=== PATIENT | male | born 1945 | race Caucasian/White ===

== ENCOUNTER 2022-01-15 18:12 | Inpatient (IN) | payer OTHER ==
[~2022-01-15] VITALS: Ht 190.5 cm; Wt 112.2 kg
[2022-01-15] MEDS ORDERED: FUROSEMIDE 40 MG/4 ML VIAL IV ONE (19:30)
[2022-01-15 20:30] LABS: Basophils # (auto) 0.1 10 ^3/uL (0-0.2); Basophils % (auto) 0.6 % (0.0-2.0); Eosinophils # (auto) 0 10 ^3/uL (0-0.8); Eosinophils % (auto) 0.2 % (0.0-7.0); Hematocrit 39.2 % (41.0-53.0); Hemoglobin 13.2 g/dL (13.5-17.5); Lymphocytes # (auto) 1.5 10 ^3/uL (0.4-5.4); Lymphocytes % (auto) 13.5 % (10.0-50.0); Mean Corpuscular Hemoglobin 30.7 pg (28.0-32.0); Mean Corpuscular Hgb Conc. 33.6 g/dL (32.0-36.0); Mean Corpuscular Volume 91.4 fL (80.0-100.0); Monocytes # (auto) 1.5 10 ^3/uL (0-1.3); Monocytes % (auto) 13.4 % (0.0-12.0); Neutrophils % (auto) 72.3 % (37.0-80.0); Nucleated Red Blood Cells % 0.1 %; Red Blood Cells 4.29 10^6/uL (4.5-5.90); Red Cell Distribution Width 14.3 % (11.8-14.3); White Blood Cell 11.1 10^3/uL (4.4-10.8)
[2022-01-15 20:59] LABS: Albumin 3.1 g/dL (3.4-5.0); Calcium 8.9 mg/dL (8.5-10.1); Potassium 5.3 mmol/L (3.5-5.1)
[2022-01-15 21:10] LABS: Bilirubin, Total 0.7 mg/dL (0.2-1.0); Total Protein 6.9 g/dL (6.4-8.2)
[2022-01-15] MEDS ORDERED: ACETAMINOPHEN 325 MG TAB PO PRN (22:15)
[2022-01-15] MEDS ORDERED: NITROGLYCERIN 0.4 MG SL TAB SL PRN (22:15)
[2022-01-15] MEDS ORDERED: MORPHINE SULFATE INJ 2 MG/ml SYRG IV PRN (22:15)
[2022-01-15] MEDS ORDERED: ONDANSETRON HCL 4 MG/2 ML VIAL IV PRN (22:15)
[2022-01-15] MEDS ORDERED: SODIUM ZIRCONIUM CYCL 10 GM PAK PO ONE (22:15)
[2022-01-16 05:00] LABS: Urine Amorphous Crystal FEW /hpf (None Seen); Urine Bacteria FEW /hpf (None Seen); Urine Blood 2+ /uL (Negative); Urine Hyaline Cast FEW /lpf (0 - 2); Urine Specific Gravity 1.023 (1.001-1.035); Urine WBC 13 /hpf (0 - 3)
[2022-01-16] MEDS: FUROSEMIDE 20 MG/2 ML VIAL IV SCH ×2 (06:01→18:00)
[2022-01-16 07:55] LABS: Basophils # (auto) 0.1 10 ^3/uL (0-0.2); Basophils % (auto) 0.8 % (0.0-2.0); Eosinophils # (auto) 0.1 10 ^3/uL (0-0.8); Eosinophils % (auto) 0.6 % (0.0-7.0); Hematocrit 36.3 % (41.0-53.0); Hemoglobin 12.2 g/dL (13.5-17.5); Lymphocytes # (auto) 1.3 10 ^3/uL (0.4-5.4); Lymphocytes % (auto) 14.9 % (10.0-50.0); Mean Corpuscular Hemoglobin 31.2 pg (28.0-32.0); Mean Corpuscular Hgb Conc. 33.7 g/dL (32.0-36.0); Mean Corpuscular Volume 92.6 fL (80.0-100.0); Monocytes # (auto) 1.4 10 ^3/uL (0-1.3); Monocytes % (auto) 16.4 % (0.0-12.0); Neutrophils # (auto) 5.9 10 ^3/uL (1.6-8.6); Neutrophils % (auto) 67.3 % (37.0-80.0); Nucleated Red Blood Cells % 0.1 %; Red Blood Cells 3.93 10^6/uL (4.5-5.90); Red Cell Distribution Width 14.4 % (11.8-14.3); White Blood Cell 8.8 10^3/uL (4.4-10.8)
[2022-01-16 08:07] LABS: Potassium 4.6 mmol/L (3.5-5.1)
[2022-01-16 08:14] LABS: Albumin 2.9 g/dL (3.4-5.0); BUN/Creatinine Ratio 23.3; Bilirubin, Total 0.5 mg/dL (0.2-1.0); Calcium 8.5 mg/dL (8.5-10.1)
[2022-01-16] MEDS ORDERED: metOLazone 5 MG TAB PO ONE (08:15)
[2022-01-16] MEDS ORDERED: ADENOSINE 93 MG in GIVE UN-DILUTED 0 ML IV ONE (08:30)
[2022-01-16] MEDS: CARVEDILOL 3.125 MG TAB PO SCH (10:00)
[2022-01-16 10:42] VITALS: BP 112/64
[2022-01-16] MEDS: ASPirin 81 mg TAB PO SCH (11:55)
[2022-01-16] MEDS: cefTRIAXone 1GM/50ML D5W 50 ML IV SCH (11:56)
[2022-01-16] MEDS: APIXABAN 5 MG TAB PO SCH (12:55)
[2022-01-16 22:00] VITALS: BP 113/58
[2022-01-17] VITALS (7 sets, daily range): BP systolic 112–153; BP diastolic 61–100
[2022-01-17] MEDS: CARVEDILOL 3.125 MG TAB PO SCH ×3 (03:54→21:44)
[2022-01-17] MEDS: APIXABAN 5 MG TAB PO SCH ×3 (03:54→21:40)
[2022-01-17] MEDS: ATORVASTATIN 20 MG TAB PO SCH ×2 (03:55→21:41)
[2022-01-17] MEDS: FUROSEMIDE 20 MG/2 ML VIAL IV SCH ×2 (06:41→18:21)
[2022-01-17] MEDS: cefTRIAXone 1GM/50ML D5W 50 ML IV SCH (09:35)
[2022-01-17] MEDS: ASPirin 81 mg TAB PO SCH (09:37)
[2022-01-17 11:31] LABS: Basophils # (auto) 0.1 10 ^3/uL (0-0.2); Eosinophils # (auto) 0.1 10 ^3/uL (0-0.8); Eosinophils % (auto) 0.9 % (0.0-7.0); Hematocrit 36.3 % (41.0-53.0); Lymphocytes # (auto) 1.1 10 ^3/uL (0.4-5.4); Lymphocytes % (auto) 14.1 % (10.0-50.0); Mean Corpuscular Hemoglobin 30.3 pg (28.0-32.0); Mean Corpuscular Volume 91.9 fL (80.0-100.0); Monocytes # (auto) 1.3 10 ^3/uL (0-1.3); Monocytes % (auto) 16.7 % (0.0-12.0); Neutrophils # (auto) 5.2 10 ^3/uL (1.6-8.6); Neutrophils % (auto) 67.3 % (37.0-80.0); Nucleated Red Blood Cells % 0.1 %; Red Blood Cells 3.95 10^6/uL (4.5-5.90); Red Cell Distribution Width 14.4 % (11.8-14.3); White Blood Cell 7.8 10^3/uL (4.4-10.8)
[2022-01-17 11:58] LABS: Calcium 8.5 mg/dL (8.5-10.1); Potassium 4.3 mmol/L (3.5-5.1)
[2022-01-17 12:00] LABS: Albumin 2.6 g/dL (3.4-5.0); BUN/Creatinine Ratio 25.5
[2022-01-17 12:02] LABS: Bilirubin, Total 0.4 mg/dL (0.2-1.0); Total Protein 6.9 g/dL (6.4-8.2)
[2022-01-17] MEDS: PANTOPRAZOLE 40 MG TAB PO SCH (12:17)
[2022-01-17] MEDS ORDERED: APIX5TAB PO (12:26)
[2022-01-17] MEDS ORDERED: ELVI1TAB5 PO ×2 (12:26→12:32)
[2022-01-17] MEDS ORDERED: CARV3.1240 PO (12:26)
[2022-01-17] MEDS ORDERED: FURO40TA4 PO (12:26)
[2022-01-17] MEDS ORDERED: DRON400T PO (12:26)
[2022-01-18 05:00] VITALS: BP 128/74
[2022-01-18] MEDS: FUROSEMIDE 20 MG/2 ML VIAL IV SCH (05:55)
[2022-01-18 06:44] LABS: Basophils # (auto) 0.1 10 ^3/uL (0-0.2); Basophils % (auto) 1.1 % (0.0-2.0); Eosinophils # (auto) 0.1 10 ^3/uL (0-0.8); Eosinophils % (auto) 1.4 % (0.0-7.0); Hematocrit 39.8 % (41.0-53.0); Hemoglobin 13.7 g/dL (13.5-17.5); Lymphocytes # (auto) 1.4 10 ^3/uL (0.4-5.4); Lymphocytes % (auto) 19.3 % (10.0-50.0); Mean Corpuscular Hemoglobin 31.8 pg (28.0-32.0); Mean Corpuscular Hgb Conc. 34.5 g/dL (32.0-36.0); Mean Corpuscular Volume 92.1 fL (80.0-100.0); Monocytes % (auto) 13.7 % (0.0-12.0); Neutrophils # (auto) 4.5 10 ^3/uL (1.6-8.6); Neutrophils % (auto) 64.5 % (37.0-80.0); Nucleated Red Blood Cells % 0.1 %; Red Blood Cells 4.32 10^6/uL (4.5-5.90); Red Cell Distribution Width 14.1 % (11.8-14.3)
[2022-01-18 06:58] LABS: BUN/Creatinine Ratio 20.7; Calcium 8.9 mg/dL (8.5-10.1); Magnesium 2.4 mg/dL (1.6-2.6); Potassium 3.9 mmol/L (3.5-5.1)
[2022-01-18 07:05] LABS: Creatinine, Urine 48 mg/dL (30.0-125.0); Protein, Urine 8.5 mg/dL (0.0-11.9); Sodium Urine 116 mmol/L (40-220)
[2022-01-18 09:00] VITALS: BP 105/61
[2022-01-18] MEDS: cefTRIAXone 1GM/50ML D5W 50 ML IV SCH (09:14)
[2022-01-18] MEDS: ASPirin 81 mg TAB PO SCH (10:19)
[2022-01-18] MEDS: APIXABAN 5 MG TAB PO SCH (10:20)
[2022-01-18] MEDS: PANTOPRAZOLE 40 MG TAB PO SCH (10:20)
[2022-01-18] MEDS: CARVEDILOL 3.125 MG TAB PO SCH (10:20)
[2022-01-18] MEDS ORDERED: DAPA1TAB4 PO (11:13)
[2022-01-18 11:37] VITALS: BP 112/78
[2022-01-18 12:30] VITALS: BP 120/68
== END 2022-01-18 13:43 | disposition home or self-care (01) | DRG 291 ==
LOC: ER 18:12 → TELE 22:12 → TELE-CENTR 01-16 20:35
PROVIDERS: ADMIT Nurse Practitioner; ATTEND Internal Medicine
DX: I50.43 Acute on chronic combined systolic (congestive) and diastolic (congestive) heart failure (principal); N17.0 Acute kidney failure with tubular necrosis; N39.0 Urinary tract infection, site not specified; I42.9 Cardiomyopathy, unspecified; I48.20 Chronic atrial fibrillation, unspecified; E87.5 Hyperkalemia; J44.9 Chronic obstructive pulmonary disease, unspecified; Z20.822 Contact with and (suspected) exposure to COVID-19; N18.30 Chronic kidney disease, stage 3 unspecified; D63.1 Anemia in chronic kidney disease; E11.22 Type 2 diabetes mellitus with diabetic chronic kidney disease; E66.9 Obesity, unspecified; Z68.30 Body mass index [BMI] 30.0-30.9, adult; Z85.528 Personal history of other malignant neoplasm of kidney; Z85.820 Personal history of malignant melanoma of skin; Z87.891 Personal history of nicotine dependence; Z90.5 Acquired absence of kidney
CPT/HCPCS: 36415; 71046; 76775; 78452; 80048; 80053; 81001; 82306; 82570; 83605; 83735; 83880; 83970; 84100; 84156; 84300; 84484; 85025; 87040; 93005; 93017; 93306; 96365; 96367; 99291; G0378; J0153; J0696

== ENCOUNTER 2023-01-28 08:59 | Day surgery (SDC) | payer OTHER ==
[2023-01-28] VITALS (7 sets, daily range): BP systolic 122–160; BP diastolic 51–69
[~2023-01-28] VITALS: Ht 190.5 cm; Wt 113.9 kg
[~2023-01-28 08:59] MED LIST: APIX5TAB PO; CALC0.25 PO; DAPA1TAB4 PO; ELVI1TAB5 PO; FURO40TA4 PO
[2023-01-28] MEDS ORDERED: LIDOCAINE 2%HCL (LOCAL ANESTH.) INJ 20ML MDV ONE (10:14)
[2023-01-28] MEDS ORDERED: IODIXANOL 320MG/ML 100ML BTL IV ONE ×2 (10:14→10:50)
[2023-01-28] MEDS ORDERED: MIDAZOLAM HCL 2MG/2ML 2ml VIAL (1mg/ml) ONE (10:16)
[2023-01-28] MEDS ORDERED: SODIUM CHL 0.9% 0 ML ONE (10:16)
[2023-01-28] MEDS ORDERED: ANGIOMAX 250 MG VIAL IV ONE (10:16)
[2023-01-28] MEDS ORDERED: VERAPAMIL 2.5MG/ML INJ 2ML VIAL IV ONE (10:16)
[2023-01-28] MEDS ORDERED: fentaNYL CITRATE 100 MCG/2 ML VL ONE (10:16)
[2023-01-28] MEDS ORDERED: HEPARIN SODIUM (PORCINE) 5000 UNITS/ML 1ML VIAL ONE (10:59)
== END 2023-01-28 13:22 | disposition home or self-care (01) ==
LOC: CATH 08:59
PROVIDERS: ATTEND Internal Medicine
DX: R94.39 Abnormal result of other cardiovascular function study (principal); I10 Essential (primary) hypertension; I48.91 Unspecified atrial fibrillation; I20.9 Angina pectoris, unspecified; I11.0 Hypertensive heart disease with heart failure; I07.1 Rheumatic tricuspid insufficiency; J44.9 Chronic obstructive pulmonary disease, unspecified; Z87.891 Personal history of nicotine dependence; Z79.899 Other long term (current) drug therapy; Z98.890 Other specified postprocedural states
CPT/HCPCS: 76937; 93458; C1725; C1769; C1887; C1894; J1644; J2250; J3010; Q9967; 99152; 99153

== ENCOUNTER 2023-02-08 01:08 | Inpatient (IN) | payer OTHER ==
[~2023-02-08] VITALS: Ht 190.5 cm; Wt 119.0 kg
[2023-02-08 01:45] LABS: Eosinophils # (auto) 0 10 ^3/uL (0-0.8); Hemoglobin 12.2 g/dL (13.5-17.5); Monocytes # (auto) 3.2 10 ^3/uL (0-1.3); Neutrophils # (auto) 16.5 10 ^3/uL (1.6-8.6)
[2023-02-08] MEDS ORDERED: NITROGLYCERIN 0.4 MG SL TAB SL ONE (01:45)
[2023-02-08] MEDS ORDERED: ASPirin 325 MG TAB PO ONE (01:45)
[2023-02-08 01:46] LABS: Basophils # (auto) 0 10 ^3/uL (0-0.2); Basophils % (auto) 0.2 % (0.0-2.0); Eosinophils % (auto) 0.1 % (0.0-7.0); Hematocrit 38.6 % (41.0-53.0); Lymphocytes # (auto) 0.8 10 ^3/uL (0.4-5.4); Mean Corpuscular Hgb Conc. 31.6 g/dL (32.0-36.0); Mean Corpuscular Volume 82.5 fL (80.0-100.0); Monocytes % (auto) 15.6 % (0.0-12.0); Neutrophils % (auto) 80.1 % (37.0-80.0); Red Blood Cells 4.69 10^6/uL (4.5-5.90); Red Cell Distribution Width 17.3 % (11.8-14.3); White Blood Cell 20.5 10^3/uL (4.4-10.8)
[2023-02-08 01:48] LABS: Urine Bacteria FEW /hpf (None Seen); Urine Blood Negative /uL (Negative); Urine Hyaline Cast FEW /lpf (0 - 2); Urine Specific Gravity 1.016 (1.001-1.035); Urine WBC 99 /hpf (0 - 3); Urine WBC Clumps PRESENT /hpf (None Seen)
[2023-02-08 01:51] LABS: Albumin 2.5 g/dL (3.4-5.0); BUN/Creatinine Ratio 14.9 (10.0-20.0); Calcium 8.6 mg/dL (8.5-10.1); Potassium 3.8 mmol/L (3.5-5.1)
[2023-02-08 01:54] LABS: Bilirubin, Total 0.4 mg/dL (0.2-1.0); Total Protein 8.1 g/dL (6.4-8.2)
[2023-02-08] MEDS ORDERED: PIPERACILLIN-TAZOB 3.375GM 100 ML IV ONE (04:00)
[2023-02-08] MEDS ORDERED: ONDANSETRON HCL 4 MG/2 ML VIAL IV PRN (05:45)
[2023-02-08] MEDS ORDERED: DOCUSATE SOD 100 MG CAP PO PRN (05:45)
[2023-02-08] MEDS ORDERED: HYDROcodone-ACET 5/325MG TAB PO PRN (05:45)
[2023-02-08] MEDS: SODIUM CHLOR 0.9% PF (SALINE LOCK) 10ML VIAL/SYR IV SCH ×3 (06:12→21:51)
[2023-02-08] MEDS ORDERED: NITROGLYCERIN 0.4 MG SL TAB SL PRN (07:30)
[2023-02-08] MEDS ORDERED: MORPHINE SULFATE INJ 2 MG/ml SYRG IV PRN (07:30)
[2023-02-08 07:52] LABS: Albumin 2.4 g/dL (3.4-5.0); Calcium 8.6 mg/dL (8.5-10.1); Potassium 4.7 mmol/L (3.5-5.1)
[2023-02-08 07:57] LABS: Bilirubin, Total 0.6 mg/dL (0.2-1.0); Total Protein 8.1 g/dL (6.4-8.2)
[2023-02-08 08:14] LABS: Eosinophils # (auto) 0 10 ^3/uL (0-0.8); Lymphocytes # (auto) 1.4 10 ^3/uL (0.4-5.4); Monocytes # (auto) 3.8 10 ^3/uL (0-1.3)
[2023-02-08 08:15] LABS: Basophils # (auto) 0 10 ^3/uL (0-0.2); Basophils % (auto) 0.2 % (0.0-2.0); Hematocrit 37.3 % (41.0-53.0); Lymphocytes % (auto) 6.1 % (10.0-50.0); Mean Corpuscular Hemoglobin 26.5 pg (28.0-32.0); Mean Corpuscular Hgb Conc. 32.2 g/dL (32.0-36.0); Mean Corpuscular Volume 82.3 fL (80.0-100.0); Monocytes % (auto) 16.5 % (0.0-12.0); Neutrophils # (auto) 17.9 10 ^3/uL (1.6-8.6); Neutrophils % (auto) 77.2 % (37.0-80.0); Red Blood Cells 4.54 10^6/uL (4.5-5.90); Red Cell Distribution Width 17.2 % (11.8-14.3); White Blood Cell 23.2 10^3/uL (4.4-10.8)
[2023-02-08] MEDS: ASPirin 81 mg TAB PO SCH (11:51)
[2023-02-08] MEDS: FUROSEMIDE 40 MG/4 ML VIAL IV SCH (11:57)
[2023-02-08] MEDS: PIPERACILLIN-TAZOB 3.375GM 100 ML IV SCH ×2 (14:06→21:50)
[2023-02-08] MEDS: ATORVASTATIN 20 MG TAB PO SCH (21:50)
[2023-02-08 21:54] VITALS: BP 159/77
[2023-02-08 22:00] VITALS: BP 159/77
[2023-02-08] MEDS ORDERED: PIPERACILLIN-TAZOB 3.375GM 100 ML IV SCH (22:00)
[2023-02-08] MEDS ORDERED: ALLO100T PO (23:03)
[2023-02-09 05:00] VITALS: BP 139/68
[2023-02-09] MEDS: SODIUM CHLOR 0.9% PF (SALINE LOCK) 10ML VIAL/SYR IV SCH ×3 (05:51→21:41)
[2023-02-09] MEDS: PIPERACILLIN-TAZOB 3.375GM 100 ML IV SCH ×3 (05:51→21:41)
[2023-02-09 06:36] LABS: Potassium 3.8 mmol/L (3.5-5.1)
[2023-02-09 06:42] LABS: Calcium 8.5 mg/dL (8.5-10.1)
[2023-02-09 06:45] LABS: Bilirubin, Total 0.4 mg/dL (0.2-1.0); Phosphorus 5.1 mg/dL (2.5-4.90); Total Protein 7.3 g/dL (6.4-8.2)
[2023-02-09 06:57] LABS: Basophils # (auto) 0 10 ^3/uL (0-0.2); Eosinophils # (auto) 0 10 ^3/uL (0-0.8); Hemoglobin 10.9 g/dL (13.5-17.5); Mean Corpuscular Volume 80.9 fL (80.0-100.0)
[2023-02-09 07:04] LABS: Basophils % (auto) 0.2 % (0.0-2.0); Eosinophils % (auto) 0.2 % (0.0-7.0); Hematocrit 33.6 % (41.0-53.0); Lymphocytes % (auto) 7.7 % (10.0-50.0); Mean Corpuscular Hemoglobin 26.2 pg (28.0-32.0); Mean Corpuscular Hgb Conc. 32.3 g/dL (32.0-36.0); Monocytes # (auto) 2.3 10 ^3/uL (0-1.3); Monocytes % (auto) 17.6 % (0.0-12.0); Neutrophils # (auto) 9.9 10 ^3/uL (1.6-8.6); Neutrophils % (auto) 74.3 % (37.0-80.0); Red Blood Cells 4.16 10^6/uL (4.5-5.90); Red Cell Distribution Width 17.2 % (11.8-14.3); White Blood Cell 13.3 10^3/uL (4.4-10.8)
[2023-02-09 07:42] LABS: Uric Acid 6.1 mg/dL (3.5-7.2)
[2023-02-09 09:04] VITALS: BP 120/69
[2023-02-09] MEDS: ASPirin 81 mg TAB PO SCH (09:09)
[2023-02-09] MEDS: FUROSEMIDE 40 MG/4 ML VIAL IV SCH (09:09)
[2023-02-09] MEDS: ACETAMINOPHEN 325 MG TAB PO PRN ×2 (13:11→20:33)
[2023-02-09] MEDS ORDERED: ALBUTEROL SULF 2.5 MG/0.5ML(0.5%) NEB SOLN NEB SCH (14:00)
[2023-02-09] MEDS: methylPREDNISolone SOD SUCC 40 MG/ML VL IV SCH ×2 (14:03→21:41)
[2023-02-09 14:28] VITALS: BP 159/81
[2023-02-09] MEDS: DAYQUIL PO PRN (14:29)
[2023-02-09 16:13] VITALS: BP 159/81
[2023-02-09 17:17] VITALS: BP 129/59
[2023-02-09] MEDS: NYQUIL PO PRN (20:33)
[2023-02-09] MEDS: MUPIROCIN 2% OINT 15gm or 22gm FOR MRSA NARES EACHNOSTRI SCH (21:41)
[2023-02-09] MEDS: ATORVASTATIN 20 MG TAB PO SCH (21:41)
[2023-02-09] MEDS: APIXABAN 5 MG TAB PO SCH (21:42)
[2023-02-09 22:00] VITALS: BP 131/61
[2023-02-10 04:54] VITALS: BP 131/72
[2023-02-10] MEDS: methylPREDNISolone SOD SUCC 40 MG/ML VL IV SCH ×3 (05:30→21:10)
[2023-02-10] MEDS: PIPERACILLIN-TAZOB 3.375GM 100 ML IV SCH ×3 (05:30→21:10)
[2023-02-10] MEDS: SODIUM CHLOR 0.9% PF (SALINE LOCK) 10ML VIAL/SYR IV SCH ×3 (05:43→21:12)
[2023-02-10 09:00] VITALS: BP 139/62
[2023-02-10] MEDS: APIXABAN 5 MG TAB PO SCH ×2 (09:32→21:10)
[2023-02-10] MEDS: ALLOPURINOL 100 MG TAB PO SCH (09:32)
[2023-02-10] MEDS: CALCITRIOL 0.25 MCG CAP PO SCH (09:32)
[2023-02-10] MEDS: MUPIROCIN 2% OINT 15gm or 22gm FOR MRSA NARES EACHNOSTRI SCH ×2 (09:33→21:18)
[2023-02-10] MEDS: EMPAGLIFLOZIN 10 MG TAB PO SCH (09:33)
[2023-02-10] MEDS: FUROSEMIDE 40 MG/4 ML VIAL IV SCH (09:33)
[2023-02-10] MEDS: ACETAMINOPHEN 325 MG TAB PO PRN (10:46)
[2023-02-10] MEDS: DAYQUIL PO PRN (10:47)
[2023-02-10 13:00] VITALS: BP 134/71
[2023-02-10 16:54] VITALS: BP 141/69
[2023-02-10 19:59] LABS: Hepatitis C Antibody Negative (Negative)
[2023-02-10] MEDS: ATORVASTATIN 20 MG TAB PO SCH (21:11)
[2023-02-10] MEDS: ALBUTEROL SULF 2.5 MG/0.5ML(0.5%) NEB SOLN NEB PRN (21:54)
[2023-02-10] MEDS: IPRATROPIUM BROM 0.5 MG/2.5ML INH SOL NEB PRN (21:54)
[2023-02-10] MEDS ORDERED: GENVOYA PO SCH (22:00)
[2023-02-10] MEDS: NYQUIL PO PRN (22:02)
[2023-02-11] MEDS: PIPERACILLIN-TAZOB 3.375GM 100 ML IV SCH ×2 (05:19→14:00)
[2023-02-11] MEDS: SODIUM CHLOR 0.9% PF (SALINE LOCK) 10ML VIAL/SYR IV SCH ×2 (05:19→14:02)
[2023-02-11] MEDS: methylPREDNISolone SOD SUCC 40 MG/ML VL IV SCH ×2 (05:19→14:00)
[2023-02-11 05:28] VITALS: BP 155/66
[2023-02-11] MEDS: IPRATROPIUM BROM 0.5 MG/2.5ML INH SOL NEB PRN (06:43)
[2023-02-11] MEDS: ALBUTEROL SULF 2.5 MG/0.5ML(0.5%) NEB SOLN NEB PRN (06:43)
[2023-02-11 06:54] LABS: Basophils # (auto) 0 10 ^3/uL (0-0.2); Basophils % (auto) 0.1 % (0.0-2.0); Eosinophils # (auto) 0 10 ^3/uL (0-0.8); Hematocrit 31.3 % (41.0-53.0); Lymphocytes # (auto) 0.5 10 ^3/uL (0.4-5.4); Lymphocytes % (auto) 3.4 % (10.0-50.0); Mean Corpuscular Volume 81.3 fL (80.0-100.0); Monocytes # (auto) 0.7 10 ^3/uL (0-1.3); Monocytes % (auto) 4.3 % (0.0-12.0); Neutrophils # (auto) 14.2 10 ^3/uL (1.6-8.6); Neutrophils % (auto) 92.2 % (37.0-80.0); Red Blood Cells 3.85 10^6/uL (4.5-5.90); White Blood Cell 15.4 10^3/uL (4.4-10.8)
[2023-02-11 07:12] LABS: Calcium 8.7 mg/dL (8.5-10.1); Potassium 4.7 mmol/L (3.5-5.1)
[2023-02-11 09:00] VITALS: BP 153/61
[2023-02-11] MEDS: APIXABAN 5 MG TAB PO SCH (09:28)
[2023-02-11] MEDS: CALCITRIOL 0.25 MCG CAP PO SCH (09:28)
[2023-02-11] MEDS: ALLOPURINOL 100 MG TAB PO SCH (09:28)
[2023-02-11] MEDS: FUROSEMIDE 40 MG/4 ML VIAL IV SCH (09:29)
[2023-02-11] MEDS: EMPAGLIFLOZIN 10 MG TAB PO SCH (09:31)
[2023-02-11] MEDS: MUPIROCIN 2% OINT 15gm or 22gm FOR MRSA NARES EACHNOSTRI SCH (09:32)
[2023-02-11] MEDS ORDERED: IPRA0.00 IN (12:20)
[2023-02-11] MEDS ORDERED: DOXY-286 PO (12:20)
[2023-02-11] MEDS ORDERED: FURO40TA4 PO (12:20)
[2023-02-11 13:00] VITALS: BP 153/80
== END 2023-02-11 15:50 | disposition home health service (06) | DRG 177 ==
LOC: ER 01:12 → TELE 07:20 → TELE-WESTW 12:31
PROVIDERS: ADMIT Nurse Practitioner Family; ATTEND Hospitalist
DX: J15.6 Pneumonia due to other Gram-negative bacteria (principal); I50.33 Acute on chronic diastolic (congestive) heart failure; J96.21 Acute and chronic respiratory failure with hypoxia; N17.0 Acute kidney failure with tubular necrosis; I13.0 Hypertensive heart and chronic kidney disease with heart failure and stage 1 through stage 4 chronic kidney disease, or unspecified chronic kidney disease; N39.0 Urinary tract infection, site not specified; J44.0 Chronic obstructive pulmonary disease with (acute) lower respiratory infection; N18.4 Chronic kidney disease, stage 4 (severe); J44.1 Chronic obstructive pulmonary disease with (acute) exacerbation; D72.829 Elevated white blood cell count, unspecified; Z20.822 Contact with and (suspected) exposure to COVID-19; Z87.891 Personal history of nicotine dependence
CPT/HCPCS: 36415; 71045; 71250; 76775; 80048; 80053; 81001; 82306; 83036; 83605; 83880; 84100; 84443; 84484; 84550; 85025; 86803; 87040; 87081; 87340; 87426; 87804; 93005; 93306; 94640; 96365; G0378; J2543

== ENCOUNTER 2023-04-16 11:35 | Inpatient (IN) | payer OTHER ==
[~2023-04-16] VITALS: Ht 190.5 cm; Wt 113.3 kg
[2023-04-16] VITALS (8 sets, daily range): BP systolic 130–161; BP diastolic 63–78; PULSE 51–64; RESP 15–18; TEMP 97.8–97.9; O2SAT 98–100
[~2023-04-16 11:35] MED LIST changes: +ALLO100T PO; +IPRA0.00 IN
[2023-04-16] MEDS ORDERED: MIDAZOLAM HCL 2MG/2ML 2ml VIAL (1mg/ml) ONE (15:51)
[2023-04-16] MEDS ORDERED: fentaNYL CITRATE 100 MCG/2 ML VL ONE (15:51)
[2023-04-16] MEDS ORDERED: SODIUM CHL 0.9% 50 ML ONE ×2 (15:51→16:30)
[2023-04-16] MEDS ORDERED: ANGIOMAX 250 MG VIAL IV ONE ×2 (15:51→16:30)
[2023-04-16] MEDS ORDERED: IODIXANOL 320MG/ML 100ML BTL IV ONE (16:10)
[2023-04-16] MEDS ORDERED: EPINEPHrine HCL 1 MG/10 ML SYRG ONE (16:19)
[2023-04-16] MEDS ORDERED: ATROPINE SULF 1 MG/10ml SYR ONE (16:19)
[2023-04-16] MEDS ORDERED: ASPirin 81 mg TAB ONE (17:02)
[2023-04-16] MEDS ORDERED: TICAGRELOR 90 MG TAB ONE (17:03)
[2023-04-16] MEDS ORDERED: NITROGLYCERIN 0.4 MG SL TAB SL PRN (17:45)
[2023-04-16] MEDS ORDERED: SODIUM CHLORIDE 0.9% 1,000 ML IV ONE (17:45)
[2023-04-16] MEDS ORDERED: MORPHINE SULFATE INJ 2 MG/ml SYRG IV PRN (17:45)
[2023-04-16] MEDS ORDERED: SODIUM CHLORIDE 0.9% 1,000 ML IV SCH (18:15)
[2023-04-16] MEDS ORDERED: ACETAMINOPHEN 325 MG TAB PO PRN (18:15)
[2023-04-16] MEDS ORDERED: ONDANSETRON HCL 4 MG/2 ML VIAL IV PRN (18:15)
[2023-04-16] MEDS ORDERED: PROMETHAZINE HCL 6.25 MG/5 ML ORAL SYRUP PO PRN (18:15)
[2023-04-16] MEDS ORDERED: APIX2.5T PO (19:43)
[2023-04-16] MEDS ORDERED: METO1TAB9 PO (19:45)
[2023-04-16] MEDS ORDERED: ATORVASTATIN 20 MG TAB PO SCH (22:00)
[2023-04-16] MEDS: SODIUM CHLOR 0.9% PF (SALINE LOCK) 10ML VIAL/SYR IV SCH (23:43)
[2023-04-17] MEDS ORDERED: THROAT LOZENGES(CEPASTAT) MT ONE (04:34)
[2023-04-17 05:00] VITALS: BP 135/53; PULSE 135; RESP 53; O2SAT 98
[2023-04-17] MEDS: SODIUM CHLOR 0.9% PF (SALINE LOCK) 10ML VIAL/SYR IV SCH ×2 (05:29→14:00)
[2023-04-17] MEDS ORDERED: TICAGRELOR 90 MG TAB PO SCH (06:00)
[2023-04-17 06:26] LABS: Basophils # (auto) 0 10 ^3/uL (0-0.2); Eosinophils # (auto) 0 10 ^3/uL (0-0.8); Eosinophils % (auto) 0.6 % (0.0-7.0); Hemoglobin 8.9 g/dL (13.5-17.5); Nucleated Red Blood Cells % 0.1 %; White Blood Cell 5.8 10^3/uL (4.4-10.8)
[2023-04-17 06:28] LABS: Basophils % (auto) 0.5 % (0.0-2.0); Hematocrit 28.8 % (41.0-53.0); Lymphocytes % (auto) 17.2 % (10.0-50.0); Mean Corpuscular Hemoglobin 23.8 pg (28.0-32.0); Mean Corpuscular Hgb Conc. 30.8 g/dL (32.0-36.0); Mean Corpuscular Volume 77.3 fL (80.0-100.0); Monocytes # (auto) 0.7 10 ^3/uL (0-1.3); Monocytes % (auto) 12.8 % (0.0-12.0); Neutrophils % (auto) 68.9 % (37.0-80.0); Red Blood Cells 3.72 10^6/uL (4.5-5.90); Red Cell Distribution Width 18.5 % (11.8-14.3)
[2023-04-17] MEDS ORDERED: ASPirin-EC 81 mg tab PO ONE (06:30)
[2023-04-17] MEDS ORDERED: CLOPIDOGREL 300 MG TAB PO ONE (06:30)
[2023-04-17 06:42] LABS: Anion Gap 9.1 (5-15); Carbon Dioxide 21.9 mmol/L (20-30); Chloride 109 mmol/L (98-107); Potassium 3.8 mmol/L (3.5-5.1); Sodium 140 mmol/L (136-145)
[2023-04-17 06:43] LABS: Calcium 8.6 mg/dL (8.5-10.1)
[2023-04-17 06:48] LABS: BUN/Creatinine Ratio 13.8 (10.0-20.0); Blood Urea Nitrogen 17 mg/dL (9-23); Glucose 99 mg/dL (74-106)
[2023-04-17 08:00] VITALS: PULSE 49
[2023-04-17 08:04] VITALS: BP 123/61; PULSE 54; RESP 21; TEMP 97.7; O2SAT 93
[2023-04-17 09:00] VITALS: BP 123/61; PULSE 54; RESP 21; TEMP 97.7; O2SAT 93
[2023-04-17] MEDS ORDERED: FAMOTIDINE 20 MG TAB PO SCH (10:00)
[2023-04-17] MEDS ORDERED: ASPirin-EC 81 mg tab PO SCH (10:00)
[2023-04-17] MEDS ORDERED: ASPirin 81 mg TAB PO SCH (10:00)
[2023-04-17] MEDS ORDERED: CLOPIDOGREL BISULFATE 75 MG TAB PO SCH (10:00)
[2023-04-17 13:00] VITALS: BP 123/54; PULSE 55; RESP 19; TEMP 97.7; O2SAT 97
[2023-04-17] MEDS ORDERED: CLOP75TA70 PO (13:16)
[2023-04-17] MEDS ORDERED: ASPI-325 PO (13:16)
[2023-04-17] MEDS ORDERED: ATOR20TA50 PO (13:16)
== END 2023-04-17 14:48 | disposition home or self-care (01) | DRG 247 ==
LOC: CATH 11:35 → TELE 17:41 → TELE-WESTW 18:32
PROVIDERS: ADMIT Internal Medicine; ATTEND Hospitalist
PROC: 027034Z Dilation of Coronary Artery, One Artery with Drug-eluting Intraluminal Device, Percutaneous Approach (ICD-10-PCS; principal; 2023-04-17)
PROC: 02F03ZZ Fragmentation in Coronary Artery, One Artery, Percutaneous Approach (ICD-10-PCS; 2023-04-17)
PROC: B41CYZZ Fluoroscopy of Pelvic Arteries using Other Contrast (ICD-10-PCS; 2023-04-17)
PROC: B211YZZ Fluoroscopy of Multiple Coronary Arteries using Other Contrast (ICD-10-PCS; 2023-04-17)
DX: I25.10 Atherosclerotic heart disease of native coronary artery without angina pectoris (principal); I50.20 Unspecified systolic (congestive) heart failure; I42.9 Cardiomyopathy, unspecified; J44.9 Chronic obstructive pulmonary disease, unspecified; I11.0 Hypertensive heart disease with heart failure; I08.3 Combined rheumatic disorders of mitral, aortic and tricuspid valves; I73.9 Peripheral vascular disease, unspecified; I48.91 Unspecified atrial fibrillation
CPT/HCPCS: 36415; 75710; 80048; 85025; 92928; 93306; 93454; 99152; 99153; G0378; J2250; Q9967

== ENCOUNTER 2023-12-10 13:09 | Inpatient (IN) | payer OTHER ==
[~2023-12-10] VITALS: Ht 190.5 cm; Wt 116.8 kg
[~2023-12-10 13:09] MED LIST changes: -APIX5TAB PO; +ASPI-325 PO; +ATOR20TA50 PO; +CLOP75TA70 PO; +METO1TAB9 PO
[2023-12-10 14:43] LABS: Chloride 109 mmol/L (98-107); Potassium 4.1 mmol/L (3.5-5.1); Sodium 142 mmol/L (136-145)
[2023-12-10 14:44] LABS: Anion Gap 6 (5-15); Basophils # (auto) 0 10 ^3/uL (0-0.2); Basophils % (auto) 0.3 % (0.0-2.0); Carbon Dioxide 27 mmol/L (20-30); Eosinophils # (auto) 0 10 ^3/uL (0-0.8); Eosinophils % (auto) 0.1 % (0.0-7.0); Hematocrit 46.8 % (41.0-53.0); Hemoglobin 15.4 g/dL (13.5-17.5); Lymphocytes # (auto) 1.3 10 ^3/uL (0.4-5.4); Lymphocytes % (auto) 13.9 % (10.0-50.0); Mean Corpuscular Hemoglobin 31.3 pg (28.0-32.0); Mean Corpuscular Hgb Conc. 32.9 g/dL (32.0-36.0); Mean Corpuscular Volume 95.4 fL (80.0-100.0); Monocytes # (auto) 0.8 10 ^3/uL (0-1.3); Monocytes % (auto) 8.4 % (0.0-12.0); Neutrophils # (auto) 7.1 10 ^3/uL (1.6-8.6); Neutrophils % (auto) 77.3 % (37.0-80.0); Nucleated Red Blood Cells % 0.6 %; Red Cell Distribution Width 15.3 % (11.8-14.3); White Blood Cell 9.2 10^3/uL (4.4-10.8)
[2023-12-10 14:49] LABS: BUN/Creatinine Ratio 17.3 (10.0-20.0); Blood Urea Nitrogen 23 mg/dL (9-23); Glucose 145 mg/dL (74-106)
[2023-12-10 14:50] LABS: Blood Alcohol < 3.0 mg/dL (<10)
[2023-12-10 15:00] LABS: INR 1.06 (0.9-1.15); Partial Thromboplastin Time 24.6 SEC (24.5-34.5); Prothrombin Time 11.1 sec (9.3-11.8)
[2023-12-10] MEDS: PROCHLORPERAZINE EDISYLATE 5 MG/ML 2ML VIAL IV ONE (15:30)
[2023-12-10] MEDS ORDERED: NITROGLYCERIN 0.4 MG SL TAB SL PRN (20:30)
[2023-12-10] MEDS ORDERED: MORPHINE SULFATE INJ 2 MG/ml SYRG IV PRN (20:30)
[2023-12-10] MEDS: FUROSEMIDE 40 MG/4 ML VIAL IV ONE (20:30)
[2023-12-10] MEDS ORDERED: ONDANSETRON HCL 4 MG/2 ML VIAL IV PRN (20:30)
[2023-12-10 21:53] VITALS: BP 145/80; PULSE 81; RESP 20; O2SAT 90
[2023-12-10] MEDS: POTASSIUM CHL 10 Meq TABLET PO SCH (22:00)
[2023-12-11] VITALS (14 sets, daily range): BP systolic 110–151; BP diastolic 59–71; PULSE 53–89; RESP 12–23; TEMP 97–98.2; O2SAT 90–97
[2023-12-11] MEDS: SODIUM CHLORIDE 0.9% 500 ML IVB ONE (04:20)
[2023-12-11] MEDS: ATORVASTATIN 20 MG TAB PO SCH (04:20)
[2023-12-11 05:17] LABS: Basophils # (auto) 0 10 ^3/uL (0-0.2); Basophils % (auto) 0.5 % (0.0-2.0); Eosinophils # (auto) 0 10 ^3/uL (0-0.8); Eosinophils % (auto) 0.5 % (0.0-7.0); Hematocrit 44.5 % (41.0-53.0); Hemoglobin 14.4 g/dL (13.5-17.5); Lymphocytes # (auto) 1.5 10 ^3/uL (0.4-5.4); Lymphocytes % (auto) 20.8 % (10.0-50.0); Mean Corpuscular Hemoglobin 31.2 pg (28.0-32.0); Mean Corpuscular Hgb Conc. 32.4 g/dL (32.0-36.0); Mean Corpuscular Volume 96.3 fL (80.0-100.0); Monocytes # (auto) 1.1 10 ^3/uL (0-1.3); Monocytes % (auto) 15.6 % (0.0-12.0); Neutrophils # (auto) 4.5 10 ^3/uL (1.6-8.6); Neutrophils % (auto) 62.6 % (37.0-80.0); Nucleated Red Blood Cells % 0.2 %; Red Blood Cells 4.62 10^6/uL (4.5-5.90); Red Cell Distribution Width 15.2 % (11.8-14.3); White Blood Cell 7.3 10^3/uL (4.4-10.8)
[2023-12-11 05:25] LABS: Chloride 109 mmol/L (98-107); Potassium 3.5 mmol/L (3.5-5.1); Sodium 140 mmol/L (136-145)
[2023-12-11 05:26] LABS: Anion Gap 6 (5-15); Calcium 9.2 mg/dL (8.7-10.4); Carbon Dioxide 25 mmol/L (20-30)
[2023-12-11 05:31] LABS: BUN/Creatinine Ratio 11.8 (10.0-20.0); Blood Urea Nitrogen 18 mg/dL (9-23); Glucose 154 mg/dL (74-106)
[2023-12-11] MEDS: FUROSEMIDE 40 MG/4 ML VIAL IV SCH (05:52)
[2023-12-11] MEDS: ALBUTEROL SULF 2.5 MG/0.5ML(0.5%) NEB SOLN NEB SCH (05:56)
[2023-12-11 09:07] LABS: Urine Bacteria None Seen /hpf (None Seen)
[2023-12-11 09:22] LABS: Urine Blood Negative /uL (Negative); Urine Clarity Clear (Clear); Urine Color Light-Yellow (Yellow); Urine Hyaline Cast FEW /lpf (0 - 2); Urine Protein, UAD TRACE (Negative); Urine Urobilinogen Normal (Negative); Urine WBC 9 /hpf (0 - 3); Urine pH 5.5 (5.0-9.0)
[2023-12-11 09:29] LABS: Amphetamine Screen, Urine Neg (NEGATIVE)
[2023-12-11 09:31] LABS: Barbiturate Scree,Urine Neg (NEGATIVE); Benzodiazephine Screen, Urine Neg (NEGATIVE); Cannabinoid Screen, Urine Neg (NEGATIVE); Cocaine Screen, Urine Neg (NEGATIVE); Opiate Scree,Urine Neg (NEGATIVE); Phencyclidine Screen, Urine Neg (NEGATIVE)
[2023-12-11] MEDS: ASPirin-EC 81 mg tab PO SCH (10:00)
[2023-12-11] MEDS: CALCITRIOL 0.25 MCG CAP PO SCH (10:54)
[2023-12-11] MEDS: ALLOPURINOL 100 MG TAB PO SCH (10:55)
[2023-12-11 11:54] LABS: Hepatitis B Surface Antigen Negative (Negative)
[2023-12-11 12:15] LABS: Hepatitis C Antibody Negative (Negative)
[2023-12-11] MEDS ORDERED: PANT1INJ3 PO (12:37)
[2023-12-11] MEDS: IPRATROPIUM BROM 0.5 MG/2.5ML INH SOL NEB SCH (18:25)
[2023-12-11] MEDS: methylPREDNISolone SOD SUCC 40 MG/ML VL IV SCH (18:28)
[2023-12-11] MEDS: BUDESONIDE (INHALATION) 0.5 MG/2 ML NEB NEB SCH (22:28)
[2023-12-12] VITALS (14 sets, daily range): BP systolic 135–146; BP diastolic 62–82; PULSE 82–105; RESP 18–20; TEMP 97.4–98.6; O2SAT 90–98
[2023-12-12 06:41] LABS: Anion Gap 13 (5-15); Carbon Dioxide 20 mmol/L (20-30); Chloride 106 mmol/L (98-107); Potassium 4.4 mmol/L (3.5-5.1); Sodium 139 mmol/L (136-145)
[2023-12-12 06:43] LABS: Calcium 9.7 mg/dL (8.5-10.1)
[2023-12-12 06:48] LABS: BUN/Creatinine Ratio 12.8 (10.0-20.0); Blood Urea Nitrogen 19 mg/dL (9-23); Glucose 197 mg/dL (74-106)
[2023-12-12] MEDS: POTASSIUM CHL 10 Meq TABLET PO SCH (09:24)
[2023-12-12] MEDS: FUROSEMIDE 20 MG TAB PO SCH (09:25)
[2023-12-12] MEDS ORDERED: POTA-36 PO (14:11)
== END 2023-12-12 16:10 | disposition home or self-care (01) | DRG 291 ==
LOC: EDBD 13:09 → ER 13:09 → TELE 20:23 → TELE-EAST 12-11 10:23
PROVIDERS: ADMIT Hospitalist; ATTEND Hospitalist
DX: I11.0 Hypertensive heart disease with heart failure (principal); I50.33 Acute on chronic diastolic (congestive) heart failure; J96.21 Acute and chronic respiratory failure with hypoxia; J44.1 Chronic obstructive pulmonary disease with (acute) exacerbation; E78.5 Hyperlipidemia, unspecified; I45.10 Unspecified right bundle-branch block; I48.91 Unspecified atrial fibrillation; G90.9 Disorder of the autonomic nervous system, unspecified; I25.10 Atherosclerotic heart disease of native coronary artery without angina pectoris; G47.33 Obstructive sleep apnea (adult) (pediatric); E66.9 Obesity, unspecified; Z87.891 Personal history of nicotine dependence; Z95.5 Presence of coronary angioplasty implant and graft; Z80.52 Family history of malignant neoplasm of bladder; Z80.1 Family history of malignant neoplasm of trachea, bronchus and lung; Z85.528 Personal history of other malignant neoplasm of kidney; Z68.31 Body mass index [BMI] 31.0-31.9, adult
CPT/HCPCS: 36415; 70450; 71045; 76604; 80048; 80307; 80320; 81001; 83880; 84484; 85025; 85379; 85610; 85730; 86803; 87340; 93005; 93306; 94640; 97110; 97116; 97163; G0378

== ENCOUNTER 2024-07-06 13:22 | Emergency (ER) | payer OTHER ==
[~2024-07-06] VITALS: Ht 188 cm; Wt 108.3 kg
[~2024-07-06 13:22] MED LIST changes: +PANT1INJ3 PO; +POTA-36 PO
[2024-07-06 13:59] LABS: Urine Bacteria None Seen /hpf (None Seen)
[2024-07-06 14:24] LABS: Urine Blood 3+ /uL (Negative); Urine Clarity Ex.Turbid (Clear); Urine Color Dark-Orange (Yellow); Urine Protein, UAD 2+ (Negative); Urine Specific Gravity 1.014 (1.001-1.035); Urine Urobilinogen Normal (Negative); Urine WBC 4655 /hpf (0 - 3); Urine WBC Clumps PRESENT /hpf (None Seen)
--- NOTE | 2024-07-06 14:59 | ED.PDOC ---
History of Present Illness HPI Comments 79 y/o M, with a Hx of prostate CA w/radiation therapy, CHF, COPD, DM, HTN, and former tobacco use, presents with c/o abnormal labs, today. Patient endorses on being sent from his radiation therapy appointment after most recent blood lab work showed patient to be anemic with low HgB count. Patient comments on receiving radiation therapy treatment for his prostate CA daily for the past 5 weeks and having concurrent hematuria, still. Patient denies having any weakness, dizziness, lightheadedness, or other associated symptoms or modifiers at this time. Chief Complaint: Abnormal LAB's Time Seen by MD: 14:25 Primary Care Provider: FAWN Reviewed Notes: Nurses Notes, Medications, Allergies Allergies: Coded Allergies: No Known Drug Allergy (Verified Allergy, Unknown, 01/27/23) Home Meds Active Scripts Potassium Chloride (POTASSIUM CHLORIDE CR) 10 Meq Tb, 1 TAB PO DAILY, #30 TAB 1 Refill Prov:MARILUZ EARL MD 12/12/23 Atorvastatin Calcium (ATORVASTATIN CALCIUM) 20 Mg Tab, 20 MG PO HS, #120 TAB Prov:MARILUZ EARL MD 04/17/23 Clopidogrel Bisulfate (CLOPIDOGREL) 75 Mg Tab, 75 MG PO DAILY, #120 TAB Prov:MARILUZ EARL MD 04/17/23 Aspirin (Aspirin Low Dose) 81 Mg Tab, 81 MG PO DAILY, #120 TAB Prov:MARILUZ EARL MD 04/17/23 Ipratropium-Albuterol (Ipratropium [place]/Albut) 1 Omer Omer, 1 OMER IN BID, #90 ML Prov:MARILUZ EARL MD 02/11/23 Dapagliflozin Propanediol (Farxiga) 10 Mg Tab, 10 MG PO DAILY for 30 Days, #30 TAB Prov:LORETO EDWARD MD 01/18/22 Reported Medications Pantoprazole Sodium (PANTOPRAZOLE SODIUM) 40 Mg Inj, 40 MG PO, INJ 12/11/23 Metoprolol Succinate (Metoprolol Succinate Er) 100 Mg Tab, 100 MG PO DAILY, TAB 04/16/23 Furosemide (Furosemide) 40 Mg Tab, 40 MG PO DAILY 04/15/23 Allopurinol (Allopurinol) 100 Mg Tab, 1 TAB PO DAILY 02/08/23 Calcitriol (Calcitriol) 0.25 Mcg Cap, 0.25 MCG PO DAILY, MCG 01/27/23 Rzfcqdjbyfox-Ltvdndhpyy-Sfomne (Genvoya [id number] mg) 1 Tab Tab, 1 TAB PO DAILY, TAB 01/17/22 Information Source: Patient Mode of Arrival: Ambulatory Severity: Moderate Timing: Hours Duration: Since onset Prehospital treatment: Other (see HPI) Past Medical History PAST MEDICAL HISTORY: Cancer (prostate CA w/radiation ), CHF, COPD, DM, HTN Surgical History (Other): radiation therapy Family History Family History: Reviewed,noncontributory to illness Social History Smoker: Quit Greater Than 1 Year Alcohol: Rarely Drugs: Denies Drug Use Lives In: Home Constitutional: denies: chills, diaphoresis, fatigue, fever, malaise, sweats, weakness, others EENTM: denies: blurred vision, double vision, ear bleeding, ear discharge, ear drainage, ear pain, ear ringing, eye pain, eye redness, hearing loss, mouth pain, mouth swelling, nasal discharge, nose bleeding, nose congestion, nose pain, photophobia, tearing, throat pain, throat swelling, voice changes, others Respiratory: denies: cough, hemoptysis, orthopnea, SOB at rest, shortness of breath, SOB with excertion, stridor, wheezing, others Cardiovascular: denies: chest pain, dizzy spells, diaphoresis, Dyspnea on exertion, edema, irregular heart beat, left arm pain, lightheadedness, palpitations, PND, syncope, others Gastrointestinal: denies: abdomen distended, abdominal pain, blood streaked bowels, constipated, diarrhea, dysphagia, difficulty swallowing, hematemesis, melena, nausea, poor appetite, poor fluid intake, rectal bleeding, rectal pain, vomiting, others Genitourinary: denies: burning, dysuria, flank pain, frequency, hematuria, incontinence, penile discharge, penile sore, pain, testicle pain, testicle swelling, urgency, others Neurological: denies: dizziness, fainting, headache, left sided numbness, left sided weakness, numbness, paresthesia, pre-existing deficit, right sided numbness, right sided weakness, seizure, speech problems, tingling, tremors, weakness, others Musculoskeletal: denies: back pain, gout, joint pain, joint swelling, muscle pa in, muscle stiffness, neck pain, others Integumetry: denies: bruises, change in color, change in hair/nails, dryness, laceration, lesions, lumps, rash, wounds, others Allergic/Immunocompromised: denies: Difficulty Healing, Frequent Infections, Hives, Itching, others Hematologic/Lymphatic: reports: anemia; denies: blood clots, easy bleeding, easy bruising, swollen glands, others Endocrine: denies: excessive hunger, excessive sweating, excessive thirst, excessive urination, flushing, intolerance to cold, intolerance to heat, un explained weight gain, unexplained weight loss, others Psychiatric: denies: anxiety, bipolar disorder, depression, hopeless, panic disorder, schizophrenia, sleepless, suicidal, others All Other Systems: Reviewed and Negative Physical Exam General Appearance: Moderate Distress, Normal HEENT: Normal ENT Inspection, Pharynx Normal, TMs Normal Neck: Full Range of Motion, Non-Tender, Normal, Normal Inspection Respiratory: Chest Non-Tender, Lungs Clear, No Accessory Muscle Use, No Respiratory Distress, Normal Breath Sounds Cardiovascular: No Edema, No JVD, No Murmur, No Gallop, Normal Peripheral Pulse s, Regular Rate/Rhythm Breast Exam: Deferred Gastrointestinal: No Organomegaly, Non Tender, No Pulsatile Mass, Normal Bowel Sounds, Soft Genitalia: Deferred Pelvic: Deferred Rectal: Deferred Extremities: No calf tenderness, Normal capillary refill, Normal inspection, Normal range of motion, Non-tender, No pedal edema Musculoskeletal : Apperance: Normal Neurologic: Alert, operations professional II-XII nml as Tested, No Motor Deficits, Normal Affect, Normal Mood, No Sensory Deficits Cerebellar Function: Normal Reflexes: Normal Skin: Dry, Pallor, Warm Peripheral Pulses: 3+ Radial (R), 3+ Radial (L) Lymphatic: No Adenopathy Was a procedure done? Was a procedure done?: No Differential Dx Considerations may include: anemia, abnormal labs X-Ray, Labs, Meds, VS Vital Signs Date Time Temp Pulse Resp B/P (MAP) Pulse Ox O2 Delivery O2 Flow Rate FiO2 07/06/24 13:37 97.8 65 16 131/70 (90) 96 Lab Test 07/06/24 15:22 07/06/24 13:57 Range/Units White Blood Count Pending Red Blood Count Pending Hemoglobin Pending Hematocrit Pending Mean Corpuscular Volume Pending Mean Corpuscular Hemoglobin Pending Mean Corpuscular Hemoglobin Concent Pending Red Cell Distribution Width Pending Platelet Count Pending Mean Platelet Volume Pending Neutrophils (%) (Auto) Pending Lymphocytes (%) (Auto) Pending Monocytes (%) (Auto) Pending Basophils (%) (Auto) Pending Neutrophils # (Auto) Pending Lymphocytes # (Auto) Pending Monocytes # (Auto) Pending Sodium Level Pending Potassium Level Pending Chloride Level Pending Carbon Dioxide Level Pending Anion Gap Pending Blood Urea Nitrogen Pending Creatinine Pending Glomerular Filtration Rate Calc Pending BUN/Creatinine Ratio Pending Serum Glucose Pending Calcium Level Pending Urine Color Dark-orange Yellow Urine Clarity Ex.turbid Clear Urine pH 6.0 5.0-9.0 Urine Specific [place] 1.014 1.001-1.035 Urine Protein 2+ H Negative Urine Ketones Negative Negative Urine Blood 3+ H Negative /uL Urine Nitrite 1+ H Negative Urine Bilirubin Negative Negative Urine Urobilinogen Normal Negative mg/dL Urine Leukocyte Esterase 3+ Negative /uL Urine RBC 644 0 - 3 /hpf Urine WBC 4655 0 - 3 /hpf Urine WBC Clumps Present None Seen /hpf Urine Squamous Epithelial Cells None seen <5 /hpf Urine Bacteria None seen None Seen /hpf Urine Glucose 4+ H Normal mg/dL Patient alert. Came in because of possible severe anemia. He does urinate blood. Vitals stable. Currently on radiation therapy. Establish intravenous access. Was given fluids. Was given Bactrim. Reviewed his previous visit. Explained to the patient. Continue cardiac monitoring. Time of 1ST Reevaluation: 14:55 Reevaluation 1ST: Unchanged Patient Education/Counseling: Diagnosis, Treatment Family Education/Counseling: No Family Present Departure 1 Departure Time of Disposition: 15:48 Impression: Primary Impression: Sepsis due to urinary tract infection Additional Impression: Severe anemia Disposition: 09 ADMITTED INPATIENT Admit to: Med Surg Condition: Guarded Critical Care Note Critical Care Time?: Yes (45 min-critical care time only) Stability Stability form required: No Heart Score Heart Score: Heart Score Response (Comments) Value History N/A 0 EKG N/A 0 Age N/A 0 Risk Factors N/A 0 Troponin N/A 0 Total 0 I personally scribed for DAVE BIRD MD ([email or web address]) on 07/06/24 at 14:59. Electronically submitted by Josué Miller [email or web address]). DAVE BIRD MD Jul 06, 2024 14:59
[2024-07-06 16:06] LABS: Chloride 109 mmol/L (98-107); Potassium 4.5 mmol/L (3.5-5.1); Sodium 136 mmol/L (136-145)
[2024-07-06 16:07] LABS: Anion Gap 8 (5-15); Calcium 9.1 mg/dL (8.7-10.4); Carbon Dioxide 19 mmol/L (20-31)
[2024-07-06 16:12] LABS: Blood Urea Nitrogen 31 mg/dL (9-23); Glucose 117 mg/dL (74-106)
[2024-07-06 16:27] LABS: Hematocrit 37.6 % (41.0-53.0); Hemoglobin 12.6 g/dL (13.5-17.5); Mean Corpuscular Hemoglobin 33.3 pg (28.0-32.0); Mean Corpuscular Hgb Conc. 33.5 g/dL (32.0-36.0); Mean Corpuscular Volume 99.4 fL (80.0-100.0); Platelet Count (auto) 177 10^3/uL (140-450); Red Blood Cells 3.78 10^6/uL (4.5-5.90); Red Cell Distribution Width 16.4 % (11.8-14.3); White Blood Cell 5.4 10^3/uL (4.4-10.8)
[2024-07-06 16:33] LABS: Basophils % (manual) 0 (0.0-2.0); Blast Cells 0; Myelocytes % 0; Promyelocytes % 0; Reactive Lymphocytes 0
[2024-07-06 17:56] LABS: Band Neutrophils % (manual) 6; Eosinophils % (manual) 1 (0-7); Lymphocytes % (manual) 14 (10.0-50.0); Metamyelocytes % 1; Monocytes % (manual) 20 (0-12); Platelet Estimate Adequate
[2024-07-06 19:53] VITALS: BP 102/60; PULSE 79; RESP 16; O2SAT 96
[2024-07-06] MEDS: SULFAMETH-TRIMETH 80/16MG-ML 15 ML in D5W 5% 500 ML IV ONE (20:19)
--- NOTE | 2024-07-07 14:45 | DVHINCON2 ---
Date Seen: Jul 06, 2024 Referring Physician ER physician Dr. Perez. Reason for Consultation Abnormal lab draws as an outpatient. History of Present Illness 79-year-old male with a known history of prostate cancer status post radiation, hypertension, dyslipidemia, who was sent by PCP with abnormal labs. Patient has a diagnosis of prostate cancer currently getting radiation as an outpatient. Patient was told that his hemoglobin might be low eventually came to the ER. In the ER patient hemoglobin was 12. Patient was found to have UTI was recommended to be admitted but patient is requesting to go home. Past Medical History Prostate cancer status post radiation Hypertension Dyslipidemia Family History: FH: bladder cancer G8 MOTHER FH: cancer G8 MOTHER G8 FATHER FH: lung cancer G8 FATHER Allergies: Coded Allergies: No Known Drug Allergy (Verified Allergy, Unknown, 01/27/23) Home Meds Active Scripts Potassium Chloride (POTASSIUM CHLORIDE CR) 10 Meq Tb, 1 TAB PO DAILY, #30 TAB 1 Refill Prov:MARILUZ EARL MD 12/12/23 Atorvastatin Calcium (ATORVASTATIN CALCIUM) 20 Mg Tab, 20 MG PO HS, #120 TAB Prov:MARILUZ EARL MD 04/17/23 Clopidogrel Bisulfate (CLOPIDOGREL) 75 Mg Tab, 75 MG PO DAILY, #120 TAB Prov:MARILUZ EARL MD 04/17/23 Aspirin (Aspirin Low Dose) 81 Mg Tab, 81 MG PO DAILY, #120 TAB Prov:MARILUZ EARL MD 04/17/23 Ipratropium-Albuterol (Ipratropium [place]/Albut) 1 Sandrine Sandrine, 1 SANDRINE IN BID, #90 ML Prov:MARILUZ EARL MD 02/11/23 Dapagliflozin Propanediol (Farxiga) 10 Mg Tab, 10 MG PO DAILY for 30 Days, #30 TAB Prov:LORETO EDWARD MD 01/18/22 Reported Medications Pantoprazole Sodium (PANTOPRAZOLE SODIUM) 40 Mg Inj, 40 MG PO, INJ 12/11/23 Metoprolol Succinate (Metoprolol Succinate Er) 100 Mg Tab, 100 MG PO DAILY, TAB 04/16/23 Furosemide (Furosemide) 40 Mg Tab, 40 MG PO DAILY 04/15/23 Allopurinol (Allopurinol) 100 Mg Tab, 1 TAB PO DAILY 02/08/23 Calcitriol (Calcitriol) 0.25 Mcg Cap, 0.25 MCG PO DAILY, MCG 01/27/23 Nqxfbnqftvsb-Glwxsmapoi-Lyfefo (Genvoya [phone] mg) 1 Tab Tab, 1 TAB PO DAILY, TAB 01/17/22 Vital Signs Vital Signs Date Time Temp Pulse Resp B/P (MAP) Pulse Ox O2 Delivery O2 Flow Rate FiO2 07/06/24 19:53 79 16 96 Room Air* 0 21 07/06/24 19:53 102/60 (74) 07/06/24 13:37 97.8 Labs/Diagnostic Data Labs Test 07/06/24 15:22 07/06/24 13:57 Range/Units White Blood Count 5.4 4.4-10.8 10^3/uL Red Blood Count 3.78 L 4.5-5.90 10^6/uL Hemoglobin 12.6 L 13.5-17.5 g/dL Hematocrit 37.6 L 41.0-53.0 % Mean Corpuscular Volume 99.4 80.0-100.0 fL Mean Corpuscular Hemoglobin 33.3 H 28.0-32.0 pg Mean Corpuscular Hemoglobin Concent 33.5 32.0-36.0 g/dL Red Cell Distribution Width 16.4 H 11.8-14.3 % Platelet Count 177 140-450 10^3/uL Mean Platelet Volume 7.9 6.9-10.8 fL Neutrophils (%) (Auto) 37.0-80.0 % Lymphocytes (%) (Auto) 10.0-50.0 % Monocytes (%) (Auto) 0.0-12.0 % Basophils (%) (Auto) 0.0-2.0 % Neutrophils # (Auto) 1.6-8.6 10 ^3/uL Lymphocytes # (Auto) 0.4-5.4 10 ^3/uL Monocytes # (Auto) 0-1.3 10 ^3/uL Differential Total Cells Counted 100.0 100 Neutrophils % (Manual) 58 37.0-80.0 Band Neutrophils % (Manual) 6 Lymphocytes % (Manual) 14 10.0-50.0 Monocytes % (Manual) 20 H 0-12 Eosinophils % (Manual) 1 0-7 Basophils % (Manual) 0 0.0-2.0 Metamyelocytes % (manual) 1 Myelocytes % (Manual) 0 Promyelocytes % (Manual) 0 Blast Cells % (Manual) 0 Reactive Lymphocytes 0 Platelet Estimate Adequate Sodium Level 136 136-145 mmol/L Potassium Level 4.5 3.5-5.1 mmol/L Chloride Level 109 H 98-107 mmol/L Carbon Dioxide Level 19 L 20-31 mmol/L Anion Gap 8 5-15 Blood Urea Nitrogen 31 H 9-23 mg/dL Creatinine 2.21 H 0.700-1.30 mg/dL Glomerular Filtration Rate Calc 30 >90 mL/min BUN/Creatinine Ratio 14.0 10.0-20.0 Serum Glucose 117 H 74-106 mg/dL Calcium Level 9.1 8.7-10.4 mg/dL Urine Color Dark-orange Yellow Urine Clarity Ex.turbid Clear Urine pH 6.0 5.0-9.0 Urine Specific [place] 1.014 1.001-1.035 Urine Protein 2+ H Negative Urine Ketones Negative Negative Urine Blood 3+ H Negative /uL Urine Nitrite 1+ H Negative Urine Bilirubin Negative Negative Urine Urobilinogen Normal Negative mg/dL Urine Leukocyte Esterase 3+ Negative /uL Urine RBC 644 0 - 3 /hpf Urine WBC 4655 0 - 3 /hpf Urine WBC Clumps Present None Seen /hpf Urine Squamous Epithelial Cells None seen <5 /hpf Urine Bacteria None seen None Seen /hpf Urine Glucose 4+ H Normal mg/dL Microbiology Date/Time Source Procedure Growth Status 07/06/24 13:57 Voided Urine Urine Culture - Preliminary Resulted Assessment 79-year-old male with known history of prostate cancer status post radiation, hypertension, dyslipidemia and he seemed to the house with a normal lab. 1. Abnormal Depakote hemoglobin is more than 12 2, UTI 3Acute kidney injury suspected clinically patient mentioned appropriately 4Prostate cancer status post radiation -patient hemoglobin is stable, patient can be discharged on p.o. antibiotics for UTI. Plan discussed with: Other Date of Service: Jul 06, 2024 Billing Provider: LORETO EDWARD MD Common Visit Codes: NOT BILLABLE LORETO EDWARD MD Jul 07, 2024 14:45
== END 2024-07-06 20:57 | disposition left against medical advice (07) ==
LOC: ER 13:22
DX: A41.9 Sepsis, unspecified organism (principal); N39.0 Urinary tract infection, site not specified; D64.9 Anemia, unspecified; I11.0 Hypertensive heart disease with heart failure; I50.9 Heart failure, unspecified; E11.9 Type 2 diabetes mellitus without complications; J44.9 Chronic obstructive pulmonary disease, unspecified; Z85.46 Personal history of malignant neoplasm of prostate; Z92.3 Personal history of irradiation; Z87.891 Personal history of nicotine dependence; Z79.02 Long term (current) use of antithrombotics/antiplatelets; Z79.82 Long term (current) use of aspirin; Z79.84 Long term (current) use of oral hypoglycemic drugs; Z79.899 Other long term (current) drug therapy
CPT/HCPCS: 36415; 80048; 81001; 85007; 85027; 86850; 86900; 86901; 87086; 96365; 99284; J3490; J7060